=== PATIENT | female | born 1935 | race Caucasian/White ===

== ENCOUNTER 2017-09-05 18:17 | Inpatient (IN) | payer OTHER, BC ==
[2017-09-05 18:27] VITALS: RESP 16
[2017-09-05] MEDS ORDERED: NS 1,000 ML IV ONE (18:32)
--- NOTE | 2017-09-05 18:32 | EDPHY ---
H & P Stated Complaint: diarrhea nausea abd cramps--CDIFF Time Seen by Provider: 09/05/17 18:31 HPI/ROS: HPI CHIEF COMPLAINT: Diarrhea, C diff, UTI HISTORY OF PRESENT ILLNESS: Patient very pleasant 82-year-old female she was recently diagnosed with C diff colitis, started on oral vancomycin, additionally recent diagnosis of UTI and is on Bactrim. She presents emergency room with worsening diarrhea she denies any blood in her stool. She has nausea but no vomiting. She denies any fever she does complain of diffuse abdominal cramping. She denies any chest pain or shortness of breath but she states that she has wiped out from the diarrhea. Complaining worsening abdominal pain. She spoke with Infectious Disease today was referred to the emergency room for further care. IV fluids. Admission. Dr. Nato Huddleston is her primary care doctor Dr. Rabia Atkinson is her ID doctor. Past Medical History: Hypertension, recent diagnosis C diff, UTI Past Surgical History: Tubal ligation, cholecystectomy Social History: Denies drugs alcohol tobacco Family History: Noncontributory ROS REVIEW OF SYSTEMS: A comprehensive 10 point review of systems is otherwise negative aside from elements mentioned in the history of present illness. Exam Constitutional elderly, frail triage nursing summary reviewed, vital signs reviewed, awake/alert. Eyes normal conjunctivae and sclera, EOMI, PERRLA. HENT normal inspection, atraumatic, dry mucus membranes, no epistaxis, neck supple/ no meningismus, no raccoon eyes. Respiratory clear to auscultation bilaterally, normal breath sounds, no respiratory distress, no wheezing. Cardiovascular rate normal, regular rhythm, no murmur, no edema, distal pulses normal. Gastrointestinal mild tender palpation diffusely, no focal areas of tenderness or peritoneal signs, no rebound, no guarding, normal bowel sounds, no distension , no pulsatile mass. Genitourinary no CVA tenderness. Musculoskeletal no midline vertebral tenderness, full range of motion, no calf swelling, no tenderness of extremities, no meningismus, good pulses, neurovascularly intact. Skin pink, warm, & dry, no rash, skin atraumatic. Neurologic awake, alert and oriented x 3, AAOx3, moves all 4 extremities equally, motor intact, sensory intact, CN II-XII intact, normal cerebellar, normal vision, normal speech. Psychiatric normal mood/affect. Heme/Lymph/Immune no lymphadenopathy. Differential diagnosis includes but is not limited to and in no particular order : Bowel obstruction, appendicitis, gallbladder disease, diverticulitis, colitis , enteritis, perforated viscus, gastritis, GERD, esophagitis, urinary tract infection, pyelonephritis, kidney stones, dehydration, toxic megacolon, C diff, UTI, sepsis Medical Decision Making: Plan for this patient IV establishment IV fluid bolus 1 L normal saline, IV Zofran nausea, CT scan abdomen pelvis with IV contrast rule out toxic megacolon, check basic blood work, hydrate, plan will be for admission. Re-evaluation: 2019: Patient be admitted to the hospitalist service for nausea, diarrhea, dehydration, C diff. I spoke with the hospitalist service Dr. Moreno who agrees to admit this patient. Updated patient. 2041: CT scan abdomen pelvis with IV contrast no evidence of acute abscess or significant inflammation. Please see full dictation report. Source: Patient - Medical/Surgical History Hx Asthma: No Hx Chronic Respiratory Disease: No Hx Diabetes: No Hx Cardiac Disease: No Hx Renal Disease: No Hx Cirrhosis: No Hx Alcoholism: No Hx HIV/AIDS: No Hx Splenectomy or Spleen Trauma: No Other PMH: HTN,Previous Hx hemorrhoids, gall bladder surgery, TUBALIGATION - Social History Smoking Status: Never smoked Constitutional: Initial Vital Signs Temperature (C) 37.0 C 09/05/17 18:24 Heart Rate 72 09/05/17 18:24 Respiratory Rate 16 09/05/17 18:24 Blood Pressure 140/93 H 09/05/17 18:24 O2 Sat (%) 97 09/05/17 18:24 O2 Delivery Mode Room Air O2 (L/minute) 0.5 Allergies/Adverse Reactions: NSAIDS (Non-Steroidal Anti-Inflamma Allergy (Verified 09/05/17 18:21) oxycodone Allergy (Verified 04/04/16 12:47) Home Medications: Medication Instructions Recorded Gabapentin [Neurontin 300 MG (*)] 300 mg PO TID 02/03/11 Hydrochlorothiazide [HCTZ (*)] 25 mg PO DAILY 02/03/11 Enalapril Maleate [Vasotec 10 MG 10 mg PO DAILY 04/04/16 (*)] Multivitamins [Multivitamin (*)] 1 each PO DAILY 04/18/16 Ondansetron Odt [Zofran Odt 4 mg 4 mg PO BID PRN 09/05/17 (*)] Sulfamethox/Tmp 800/160 mg 1 tab PO BID 09/05/17 [Bactrim Ds] Vancomycin [Vancomycin (*)] 125 mg PO QID 09/05/17 Medical Decision Making - Data Points Laboratory Results: Laboratory Results 09/06/17 04:30 09/06/17 04:30 Medications Given: Enoxaparin Sodium (Lovenox) 40 mg SC DAILY [facility] Stop: 03/05/18 08:59 Last Admin: 09/06/17 11:47 Dose: Not Given Gabapentin (Neurontin) 300 mg PO TID [facility] Stop: 03/04/18 21:59 Last Admin: 09/06/17 21:36 Dose: 300 mg Hydrochlorothiazide (Hydrochlorothiazide) 25 mg PO DAILY [facility] Stop: 03/05/18 08:59 Last Admin: 09/06/17 11:48 Dose: Not Given Sodium Chloride (Ns) 1,000 mls @ 125 mls/hr IV CONT [facility] Stop: 03/04/18 20:59 Last Admin: 09/06/17 21:42 Dose: 1,000 mls Lorazepam (Ativan Injection) 1 mg IVP Q4HRS PRN PRN Reason: Anxiety, Unable to Take PO Stop: 03/05/18 12:19 Last Admin: 09/06/17 13:03 Dose: 1 mg Metoclopramide HCl (Reglan Injection) 10 mg IVP Q6HRS PRN PRN Reason: Nausea/Vomiting, Can't Take PO Stop: 03/05/18 09:52 Last Admin: 09/06/17 10:11 Dose: 10 mg Miscellaneous Medication (Non-Formulary) 0 ea PO QID [facility] Stop: 09/06/17 23:00 Last Admin: 09/06/17 21:35 Dose: 1 cap Multivitamins (Tab-A-Nael) 1 each PO DAILY [facility] Stop: 03/05/18 08:59 Last Admin: 09/06/17 11:48 Dose: Not Given Ondansetron HCl (Zofran) 4 mg IVP Q4HRS PRN PRN Reason: Nausea/Vomiting, Can't Take PO Stop: 03/04/18 20:57 Last Admin: 09/06/17 05:11 Dose: 4 mg Ondansetron HCl (Zofran Odt) 4 mg PO Q4HRS PRN PRN Reason: Nausea/Vomiting, Use 1st Stop: 03/04/18 20:57 Last Admin: 09/05/17 23:16 Dose: 4 mg Discontinued Medications Hydromorphone HCl (Dilaudid) 0.5 mg IVP [facility]NOW ONE Stop: 09/05/17 20:08 Last Admin: 09/05/17 20:15 Dose: 0.5 mg Sodium Chloride (Ns) 1,000 mls @ 0 mls/hr IV EDNOW ONE; Wide Open PRN Reason: Protocol Stop: 09/05/17 18:33 Last Admin: 09/05/17 18:48 Dose: 1,000 mls Morphine Sulfate (Morphine) 4 mg IVP EDNOW ONE Stop: 09/05/17 18:59 Last Admin: 09/05/17 19:10 Dose: 4 mg Ondansetron HCl (Zofran) 4 mg IVP EDNOW ONE Stop: 09/05/17 18:38 Last Admin: 09/05/17 18:49 Dose: 4 mg Departure - Departure Disposition: [facility] Inpatient Acute Clinical Impression: Dehydration, Hyponatremia, C. difficile colitis Diarrhea Qualifiers: Diarrhea type: infectious Qualified Code(s): A09 - Infectious gastroenteritis and colitis, unspecified Condition: Fair
[2017-09-05] MEDS ORDERED: ONDANSETRON 4 MG/2 ML VIAL IVP ONE (18:37)
[2017-09-05 19:08] LABS: PLATELET COUNT 254 10^3/uL (150-400)
[2017-09-05 19:19] LABS: INR 0.92 (0.83-1.16); PROTIME(PATIENT) 12.6 SEC (12.0-15.0)
[2017-09-05] MEDS ORDERED: IOPAMIDOL (ISOVUE-300) 100 ML BTL ONE (19:26)
[2017-09-05] MEDS ORDERED: HYDROmorphONE/DILAUDID 2 MG/ML INJ IVP ONE (20:07)
[2017-09-05] MEDS ORDERED: ACETAMINOPHEN 325 MG TAB PO PRN (20:58)
[2017-09-05] MEDS ORDERED: ONDANSETRON DISINTEGRATING 4 MG TAB PO PRN ×2 (20:58→21:04)
[2017-09-05] MEDS: VANCOMYCIN 125MG CAPSULE PO SCH (21:52)
--- NOTE | 2017-09-05 21:52 | GHP ---
[f rep st] HISTORY AND PHYSICAL DATE OF ADMISSION: 09/05/2017 HISTORY OF PRESENT ILLNESS: Patient is an 82-year-old female with history of hypertension, recently diagnosed with UTI and subsequently diarrhea and subsequently C difficile diarrhea diagnosis. She pr esents to the emergency department today with worsening diarrhea, nausea but no vomiting, and diffuse abdominal cramping. She has had poor p.o. intake, but she was able to get some stuff getting down. She had 6-8 bowel movements today. She has discussed this with infectious disease doctor, who refer red her to the emergency department. When I speak with her about her UTI, she was diagnosed in took 5 days' of antibiotics. Her urinary s ymptoms have largely resolved. She has not had blood in her stool, hematemesis or coffee-ground emesis. She does not have fever. REVIEW OF SYSTEMS: Complete 10-point review of systems conducted, negative except as noted in the HP I. PAST MEDICAL HISTORY: Hypertension, cholecystectomy, history of tubal ligation, C difficile, and UTI . ALLERGIES: NSAIDs, oxycodone. HOME MEDICATIONS: Ondansetron, enalapril, Bactrim, gabapentin, hydrochlorothiazide, multivitamin, va ncomycin. SOCIAL HISTORY: Lives in [place]. No tobacco. Minimal alcohol. FAMILY HISTORY: Parents . PHYSICAL EXAMINATION: VITALS: 1037, Blood pressure 140/93, pulse 72, breathing at 16 times a minute , 97% on room air. GENERAL: No acute distress. HEENT: Sclerae anicteric. Oropharynx clear. Mucou s membranes are moist. NECK: Supple without lymphadenopathy or JVD. LUNGS: Clear to auscultation bilaterally. HEART: S1, S2. ABDOMEN: Soft, nontender, nondistended. LOWER EXTREMITIES: No edema . Calves are nontender. SKIN: Without rash. NEUROLOGIC: Nonfocal. LABORATORY DATA: Sodium 139, potassium 4, chloride 91, bicarb 25, BUN 8, creatinine 0.9. LFTs malgorzata l. Lipase normal. Venous lactate is 1.6. Coags normal. White count 3.76, hematocrit is 38.2, plat elets are 254,000. Abdominal CT: Images reviewed, interpreted by me, show sigmoid diverticulitis wi thout and no evidence of toxic megacolon. I discussed the case with LEVAR Carlton, in t he emergency department. ASSESSMENT/PLAN: 82-year-old female with Clostridium difficile and urinary tract infection. 1. Urinary tract infection. Patient received 5 days' of antibiotics and her urinary symptoms resolv ed. Will withdraw the offending antibiotic at this period in time. 2. Clostridium difficile. She has a benign abdominal exam and no evidence of toxic megacolon. Will continue her vancomycin. 3. Volume depletion as evidenced by a low sodium and diarrhea. Will give her intravenous fluids. 4. Prophylaxis. Pharmacologic prophylaxis is indicated if in the hospital longer than 24 hours. 5. Hypertension. Continue her antihypertensives. DISPOSITION: Observation status. /[id number]/MODL
[2017-09-05] MEDS: NS 1,000 ML IV SCH (21:53)
[2017-09-05] MEDS ORDERED: VANCOMYCIN 125 MG/2.5 ML UDL PO SCH (22:00)
[2017-09-05] MEDS: GABAPENTIN 300 MG CAP PO SCH (22:48)
[2017-09-06] MEDS: ONDANSETRON 4 MG/2 ML VIAL IVP PRN ×2 (00:45→05:11)
[2017-09-06 04:59] LABS: PLATELET COUNT 218 10^3/uL (150-400)
[2017-09-06] MEDS: NS 1,000 ML IV SCH ×2 (05:13→21:42)
[2017-09-06] MEDS: VANCOMYCIN 125MG CAPSULE PO SCH ×4 (05:43→21:35)
--- NOTE | 2017-09-06 07:45 | HOSPPROG ---
Hospitalist Progress Note Assessment/Plan: 82-y/o F PMH htn, with recently diagnosed UTI and suspect diarrhea diagnosed with C diff diarrhea as outpatient. On 09/05, she called her ID doc due to ongoing diarrhea, N, and diffuse abdominal cramping with poor PO intake. 6-8 BMs per day. #. UTI: has completed 5 days of abx with resolution of urinary symptoms Bactrim stopped as that is likely ofending abx in regard to C diff #. N: ongoing N and abdominal pain and unable to tolerate PO #. C diff: no e/o toxic megacolon Outpatient Vanco continued #. Volume depletion: as evidenced by low sodium continue IVF #. htn: home antihypertensive continued #. DVT ppx: ordered Enox #. Disposition: pt will be transitioned to inpatient due to ongoing symptoms that require IV medications and fluids. Subjective: Pt notes N, back pain and is reporting feeling like she "is coming out of her skin." Objective: Vital Signs Temp Pulse Resp BP Pulse Ox 97.8 F 62 16 133/45 H 92 09/06/17 03:18 09/06/17 03:18 09/06/17 03:18 09/06/17 03:18 09/06/17 03:18 Laboratory Results 09/06/17 04:30 09/06/17 04:30 09/05/17 09/06/17 09/07/17 05:59 05:59 05:59 Intake Total 1300 Output Total 1150 Balance 150 PT 12.6 SEC (12.0-15.0) 09/05/17 18:50 INR 0.92 (0.83-1.16) 09/05/17 18:50 - Physical Exam Constitutional: no apparent distress Eyes: PERRL Ears, Nose, Mouth, Throat: moist mucous membranes Cardiovascular: regular rate and rhythym, no murmur, rub, or gallop Respiratory: no respiratory distress Gastrointestinal: normoactive bowel sounds, soft, non-tender abdomen Skin: warm, normal color Neurologic: AAOx3 ICD10 Worksheet Patient Problems: Problems Problem Status Onset C. difficile colitis Acute Dehydration Acute Diarrhea Acute Hyponatremia Acute Diverticulitis Acute Nausea Acute
--- NOTE | 2017-09-06 09:31 | ASMTCMCOM ---
CM Note CM Note Notes: Patient admitted via ED for dehydration secondary to CDIFF. She is obs status. Needs to be determined. CM to follow. Date Signed: 09/06/2017 09:31 AM Electronically Signed By:Tisha Yeboah RN
[2017-09-06] MEDS ORDERED: PROCHLORPERAZINE MALEATE 5 MG TAB PO PRN (09:53)
[2017-09-06] MEDS ORDERED: PROCHLORPERAZINE MALEATE 10 MG TAB PO PRN (09:53)
[2017-09-06] MEDS ORDERED: METOCLOPRAMIDE 10 MG TAB PO PRN (09:53)
[2017-09-06] MEDS ORDERED: METOCLOPRAMIDE 10 MG/2 ML VIAL IVP PRN (09:53)
--- NOTE | 2017-09-06 11:09 | PCMIDPN ---
Assessment/Plan: Assessment: Patient admitted yesterday from the emergency room after paging me through the answering service secondary to inability to deal with symptoms of urinary tract infection and C difficile colitis at home. Patient was on oral Bactrim as well as oral vancomycin. She experience profound nausea over the last 2 days. Unable to keep any oral food or drink down. Currently she is resting in her hospital bed. Still having significant nausea. Still using the bathroom multiple times overnight but somewhat decreased from the day before. Urinalysis in the emergency room did not show significant signs of urinary tract infection. Therefore will not reinitiate treatment for urinary tract infection. Will continue oral vancomycin. Plan: 1. Continue oral vancomycin. 2. manage symptoms. 3. follow clinical course. Subjective: Patient is resting in her hospital bed. Still feels pretty terrible. No fevers. Continued nausea. Objective: Vancomycin p.o. Vital Signs Temp Pulse Resp BP Pulse Ox 36.6 C 74 16 128/50 H 93 09/06/17 11:05 09/06/17 11:05 09/06/17 11:05 09/06/17 11:05 09/06/17 11:05 Laboratory Results 09/06/17 04:30 09/06/17 04:30 09/05/17 09/06/17 09/07/17 05:59 05:59 05:59 Intake Total 1300 Output Total 1150 Balance 150 - Physical Exam General Appearance: WD/WN, alert, no apparent distress, non-toxic Respiratory: lungs clear, normal breath sounds, No respiratory distress Cardiac/Chest: regular rate, rhythm, No tachycardia Abdomen: soft, No non-tender, No distended, No mass Skin: normal color, warm/dry, No rash Neuro/Psych: alert, normal mood/affect, oriented x 3 ICD10 Worksheet Patient Problems: Problems Problem Status Onset C. difficile colitis Acute Dehydration Acute Diarrhea Acute Hyponatremia Acute Diverticulitis Acute Nausea Acute
[2017-09-06] MEDS: ENOXAPARIN 40 MG/0.4 ML SYR SC SCH (11:47)
[2017-09-06] MEDS: MULTIVITAMINS 1 EACH TAB PO SCH (11:48)
[2017-09-06] MEDS: GABAPENTIN 300 MG CAP PO SCH ×4 (11:48→21:36)
[2017-09-06] MEDS: HYDROCHLOROTHIAZIDE 25 MG TAB PO SCH (11:48)
[2017-09-06] MEDS ORDERED: LORazepam 2 MG/ML INJ IVP PRN (12:20)
--- NOTE | 2017-09-06 13:03 | PDMN ---
Medical Necessity Medical necessity: C/M review: est. >. 2 MN LOS for eval and TX of acute and persistent nausea, poor oral intake, abdominal pain, volume depletion, urinary tract infection - patient completed 5 days of antibiotics with resolution of urinary symptoms -Bactrim stopped as that was that is the likely offending antibiotic in regard C. Difficile, C. Difficile diarrhea diagnosed as outpt. requiring ongoing IV Reglan, IV Morphine as needed, IV fluids, oral Vancomycin, acute inpt PT/OT, comorbid hypertension per 09/06/2017 Hospitalist progress note.
[2017-09-07] MEDS: VANCOMYCIN 125 MG/2.5 ML UDL PO SCH ×2 (05:15→12:08)
[2017-09-07] MEDS: NS 1,000 ML IV SCH (05:17)
[2017-09-07 07:37] VITALS: BP 127/71; PULSE 76; TEMP 97.9; O2SAT 93
[2017-09-07] MEDS: MULTIVITAMINS 1 EACH TAB PO SCH (08:22)
[2017-09-07] MEDS: HYDROCHLOROTHIAZIDE 25 MG TAB PO SCH (08:22)
[2017-09-07] MEDS: GABAPENTIN 300 MG CAP PO SCH (08:22)
[2017-09-07] MEDS: ENOXAPARIN 40 MG/0.4 ML SYR SC SCH (08:22)
--- NOTE | 2017-09-07 10:40 | HOSPPROG ---
Hospitalist Progress Note Assessment/Plan: Patient is an 82-year-old female with a history of hypertension and recently treated for UTI. She presented with worsening diarrhea and was noted to have C difficile. Today is my 1st encounter with the patient. Chart reviewed. * C diff colitis -on oral vancomycin -has a script at [facility] for refill -one loose stool this morning * recent urinary tract infections -she was treated with 5 days of antibiotics * dehydration -resolved * hypertension -bp stable * hyponatremia due to hypovolemia -resolved *Plan: dc home with f/u with Dr Figueroa Subjective: Mary is feeling well, no complaints. Objective: Vital Signs Temp Pulse Resp BP Pulse Ox 36.6 C 76 16 127/71 H 93 09/07/17 07:30 09/07/17 07:30 09/07/17 07:30 09/07/17 08:22 09/07/17 07:30 09/06/17 09/07/17 09/08/17 05:59 05:59 05:59 Intake Total 1500 Balance 1500 PT 12.6 SEC (12.0-15.0) 09/05/17 18:50 INR 0.92 (0.83-1.16) 09/05/17 18:50 - Physical Exam Constitutional: no apparent distress, appears nourished Eyes: PERRL Ears, Nose, Mouth, Throat: hearing normal Respiratory: no respiratory distress Skin: warm Neurologic: AAOx3 Psychiatric: interacting appropriately ICD10 Worksheet Patient Problems: Problems Problem Status Onset C. difficile colitis Acute Dehydration Acute Diarrhea Acute Hyponatremia Acute Diverticulitis Acute Nausea Acute
--- NOTE | 2017-09-07 13:18 | GDS ---
[f rep st] DISCHARGE SUMMARY DISCHARGE DIAGNOSES: 1. Clostridium difficile. 2. Recent urinary tract infection. 3. Dehydration. 4. Hypertension. 5. Hyponatremia due to hypovolemia. CONSULTATION: Dr. Esau Kay. Briefly, the patient is an 82-year-old female with hypertension, recently treated for UTI. She prese nted with worsening diarrhea, was noted to have Clostridium difficile. She was treated with oral van comycin. She was also well hydrated during her stay. She is feeling markedly better and will be dis charged home. HOSPITAL COURSE: 1. Clostridium difficile. She already has a prescription at [facility] for a refill of this. She has had 1 loose stool this morning. 2. Recent urinary tract infection. She was treated with 5 days of antibiotics. No further antibiot ics indicated. 3. Dehydration, resolved. 4. Hypertension, stable. 5. Hyponatremia. This is resolved. DISCHARGE CONDITION: Stable. Blood pressure is 127/71. Respiratory rate is 16, pulse 76. Temperat ure is 36.6 Celsius. O2 saturation on room air are 92%. DISCHARGE MEDICATIONS: Please see the EMR. DISCHARGE INSTRUCTIONS: 1. To follow up with Dr. Atkinson. 2. To avoid antibiotics unless they are indicated and to discuss this with Infectious Disease. 3. To hold her hydrochlorothiazide for the next 2 days. If she has recurrent diarrhea, to hold this medication due to being a diuretic. Copy requested to: Dr. Atkinson /[id number]/MODL
== END 2017-09-07 12:53 | disposition home or self-care (01) | DRG 372 ==
LOC: INTOOBSV 20:47 → OBSVTOIN 20:47 → F3E 21:13 → OBSVTOIN 09-06 12:49
PROVIDERS: ADMIT Internal Medicine; ATTEND Internal Medicine
DX: A04.72 Enterocolitis due to Clostridium difficile, not specified as recurrent (principal); E87.1 Hypo-osmolality and hyponatremia; E86.0 Dehydration; I10 Essential (primary) hypertension; Z87.440 Personal history of urinary (tract) infections
CPT/HCPCS: 96374; 97116-GP; 97161-GP; G8978-GP-CK; G8979-GP-CI; G8980-GP-CI; J1170; J1650; J2060; J2270; J2405; J2765; Q9967